=== PATIENT | male | born 1945 | race Caucasian/White ===

== ENCOUNTER 2021-07-26 18:11 | Emergency (ER) | payer MEDICARE, BC ==
[2021-07-26] MEDS ORDERED: Sodium Chloride 0.9% 10 ML Syringe FLUSH PRN (18:37)
[2021-07-26] MEDS ORDERED: Lidocaine 2% HCl 11 ML Jelly Filled Syringe TOP ONE (18:38)
--- NOTE | 2021-07-26 18:47 | EDM.PDOC ---
ED HPI GENERAL MEDICAL PROBLEM - General Chief Complaint: Genitourinary Problem Stated Complaint: kidney stone Time Seen by Provider: 07/26/21 18:15 Source of Information: Reports: Patient History Limitations: Reports: No Limitations - History of Present Illness INITIAL COMMENTS - FREE TEXT/NARRATIVE: Patient comes emergency department today with complaints of hematuria. Patient does have a history of kidney stones as well as hypertension. He is on any anticoagulants or antiplatelets. About 7 days ago he noted that he started having yuridia blood in his urine but he did not have any pain. He continues to have yuridia blood to the point today where it is getting difficult for him to urinate he has a lot of pressure in the suprapubic region. Prior to this he had no dysuria or hematuria or urinary frequency. He has no fever no chills. No abdominal pain. No flank pain. He has had no recent procedures. He has had no recent trauma. This started spontaneously. He had no difficulty with urination previously. - Related Data Allergies Allergy/AdvReac Type Severity Reaction Status Date / Time itraconazole [From Sporanox] Allergy Edema, Verified 07/26/21 18:13 Heart Failure peanut Allergy Cough,conge Verified 07/26/21 18:13 stion Home Meds: Home Meds FLUoxetine HCl [Fluoxetine HCl] 40 mg PO QAM 12/30/13 [History] Felodipine [Felodipine ER] 5 mg PO QAM 12/30/13 [History] ramipriL [Altace] 10 mg PO QAM 12/30/13 [History] EPINEPHrine [Epipen] 0.3 mg IM ASDIRECTED PRN 08/12/16 [History] Multivitamin [Multivitamins] 1 tab PO DAILY 08/13/16 [History] buPROPion [buPROPion XL] 150 mg PO DAILY 08/13/16 [History] Ciprofloxacin HCl [Cipro] 500 mg PO BID #8 tablet 07/26/21 [Rx] Finasteride 5 mg PO BEDTIME #30 tablet 07/26/21 [Rx] Past Medical History Cardiovascular History: Reports: Hypertension, Other (See Below) Other Cardiovascular History: Dyslipidemia Respiratory History: Reports: COPD, Sleep Apnea Gastrointestinal History: Reports: Colon Polyp, Other (See Below) Other Gastrointestinal History: Hx of colon polyps and altered bowel patterns Genitourinary History: Reports: BPH, Other (See Below) Other Genitourinary History: BPH with history of elevated PSA and has been seen by urology, history of kidney stones with lithotripsy Musculoskeletal History: Reports: Osteoarthritis Other Musculoskeletal History: Osteoarthritis to bilat knees & shoulders. Left rotator cuff disease, right rotator cuff surgery. 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 Psychiatric History: Reports: Depression - Past Surgical History Musculoskeletal Surgical History: Reports: Shoulder Surgery Social & Family History - Tobacco Use Tobacco Use Status *Q: Former Tobacco User Used Tobacco, but Quit: Yes Month/Year Tobacco Last Used: 1991 - Caffeine Use Caffeine Use: Reports: Coffee, Soda - Recreational Drug Use Recreational Drug Use: No ED ROS GENERAL - Review of Systems Review Of Systems: Comprehensive ROS is negative, except as noted in HPI. ED EXAM, RENAL/ - Physical Exam Exam: See Below Exam Limited By: No Limitations General Appearance: Alert, WD/WN, No Apparent Distress Respiratory/Chest: No Respiratory Distress, Lungs Clear, Normal Breath Sounds Cardiovascular: Normal Peripheral Pulses, Regular Rate, Rhythm GI/Abdominal: Normal Bowel Sounds, Soft, Non-Tender (Male) Exam: Deferred Rectal (Males) Exam: Deferred Back Exam: Normal Inspection, Full Range of Motion Extremities: Normal Inspection, Normal Range of Motion, Non-Tender, No Pedal Edema, Normal Capillary Refill Neurological: Alert, Oriented, Normal Cognition, Normal Gait, No Motor/Sensory Deficits Psychiatric: Normal Affect, Normal Mood Skin Exam: Warm, Dry, Intact, Normal Color, No Rash Lymphatic: No Adenopathy Course - Vital Signs Last Recorded V/S: Last Vital Signs Temp 98.1 F 07/26/21 21:21 Pulse 84 07/26/21 21:21 Resp 12 07/26/21 21:21 BP 153/88 H 07/26/21 21:21 Pulse Ox 93 L 07/26/21 21:21 - Orders/Labs/Meds Orders: Active Orders 24 hr Category Date Time Status Soler Catheter Insertion [Insert Urinary Catheter] [OM. Care 07/26/21 18:45 Ordered PC] Q24H CULTURE URINE [RM] Stat Lab 07/26/21 19:20 Results Peripheral IV Insertion Adult [OM.PC] Stat Oth 07/26/21 18:37 Ordered Labs: Laboratory Tests 07/26/21 07/26/21 07/26/21 Range/Units 18:48 18:48 18:48 WBC 7.0 (4.0-10.2) K/uL RBC 4.56 (4.33-5.41) M/uL Hgb 13.9 (13.1-16.8) g/dL Hct 41.7 (39.0-49.0) % MCV 91.4 (84.0-98.0) fL MCH 30.5 (28.2-33.3) pg MCHC 33.3 (31.7-36.0) g/dL RDW 14.9 H (11.2-14.1) % Plt Count 241 (150-350) K/uL Neut % (Auto) 66.1 (45.0-80.0) % Lymph % (Auto) 19.7 (10.0-50.0) % Mason % (Auto) 9.2 (2.0-14.0) % Eos % (Auto) 4.4 (0.0-5.0) % Baso % (Auto) 0.6 (0.0-2.0) % Neut # (Auto) 4.65 (1.40-7.00) K/uL Lymph # (Auto) 1.39 (0.50-3.50) K/uL Mason # (Auto) 0.65 (0.00-1.00) K/uL Eos # (Auto) 0.31 (0.00-0.50) K/uL Baso # (Auto) 0.04 (0.00-0.20) K/uL PT 9.8 (9.5-12.0) SEC INR 1.0 APTT 25.0 (24.5-32.8) SEC Sodium 146 H (136-145) mmol/L Potassium 3.6 (3.5-5.1) mmol/L Chloride 110 H (98-107) mmol/L Carbon Dioxide 23.5 (21.0-32.0) mmol/L Anion Gap 16.1 H (7-15) meq/L BUN 22 H (7-18) mg/dL Creatinine 1.33 H (0.51-1.17) mg/dL Est Cr Clr Drug Dosing 43.97 mL/min Estimated GFR (MDRD) 53 mL/min Glucose 107 H (70-99) mg/dL Calcium 8.6 (8.5-10.1) mg/dL Total Bilirubin 0.3 (0.2-1.0) mg/dL AST 20 (15-37) U/L ALT 41 (12-78) U/L Alkaline Phosphatase 93 (46-116) IU/L C-Reactive Protein < 0.2 (<=0.9) mg/dL Total Protein 6.6 (6.4-8.2) g/dL Albumin 3.6 (3.4-5.0) g/dL Specimen Type Urine Color Urine Appearance Urine pH (5.0-9.0) Ur Specific [place] (1.005-1.030) Urine Protein (NEGATIVE) mg/dL Urine Glucose (UA) (NEGATIVE) mg/dL Urine Ketones (NEGATIVE) mg/dL Urine Occult Blood (NEGATIVE) Urine Nitrite (NEGATIVE) Urine Bilirubin (NEGATIVE) Urine Urobilinogen (0.2-1.0) E.U./dL Ur Leukocyte Esterase (NEGATIVE) Urine RBC /HPF Urine WBC /HPF Ur Epithelial Cells /LPF Urine Bacteria (NONE TO FEW) /HPF Urine Mucus (NEGATIVE) /LPF 07/26/21 Range/Units 19:20 WBC (4.0-10.2) K/uL RBC (4.33-5.41) M/uL Hgb (13.1-16.8) g/dL Hct (39.0-49.0) % MCV (84.0-98.0) fL MCH (28.2-33.3) pg MCHC (31.7-36.0) g/dL RDW (11.2-14.1) % Plt Count (150-350) K/uL Neut % (Auto) (45.0-80.0) % Lymph % (Auto) (10.0-50.0) % Mason % (Auto) (2.0-14.0) % Eos % (Auto) (0.0-5.0) % Baso % (Auto) (0.0-2.0) % Neut # (Auto) (1.40-7.00) K/uL Lymph # (Auto) (0.50-3.50) K/uL Mason # (Auto) (0.00-1.00) K/uL Eos # (Auto) (0.00-0.50) K/uL Baso # (Auto) (0.00-0.20) K/uL PT (9.5-12.0) SEC INR APTT (24.5-32.8) SEC Sodium (136-145) mmol/L Potassium (3.5-5.1) mmol/L Chloride (98-107) mmol/L Carbon Dioxide (21.0-32.0) mmol/L Anion Gap (7-15) meq/L BUN (7-18) mg/dL Creatinine (0.51-1.17) mg/dL Est Cr Clr Drug Dosing mL/min Estimated GFR (MDRD) mL/min Glucose (70-99) mg/dL Calcium (8.5-10.1) mg/dL Total Bilirubin (0.2-1.0) mg/dL AST (15-37) U/L ALT (12-78) U/L Alkaline Phosphatase (46-116) IU/L C-Reactive Protein (<=0.9) mg/dL Total Protein (6.4-8.2) g/dL Albumin (3.4-5.0) g/dL Specimen Type Urinvoid Urine Color Red Urine Appearance Turbid Urine pH 8.5 (5.0-9.0) Ur Specific [place] 1.015 (1.005-1.030) Urine Protein >=300 H (NEGATIVE) mg/dL Urine Glucose (UA) Negative (NEGATIVE) mg/dL Urine Ketones 15 H (NEGATIVE) mg/dL Urine Occult Blood Large H (NEGATIVE) Urine Nitrite Positive H (NEGATIVE) Urine Bilirubin Large H (NEGATIVE) Urine Urobilinogen 2.0 H (0.2-1.0) E.U./dL Ur Leukocyte Esterase Large H (NEGATIVE) Urine RBC >100 H /HPF Urine WBC 10-20 H /HPF Ur Epithelial Cells Rare /LPF Urine Bacteria Few (NONE TO FEW) /HPF Urine Mucus Few H (NEGATIVE) /LPF Meds: Medications Discontinued Medications Generic Name Dose Route Start Last Admin Trade Name Freq PRN Reason Stop Dose Admin Finasteride 10 mg 07/26/21 21:21 07/26/21 21:44 Finasteride 5 Mg Tab PO 07/26/21 21:22 10 mg NOW STA Administration Ceftriaxone Sodium 1 gm/ 100 mls @ 200 mls/hr 07/26/21 19:35 07/26/21 20:15 Sodium Chloride IV 07/26/21 20:04 200 mls/hr ONETIME ONE Administration Lactated Ringer's 1,000 mls @ 125 mls/hr 07/26/21 20:00 07/26/21 21:18 Ringers, Lactated IV 500 mls/hr ASDIRECTED TASHI Infusion Lidocaine HCl 11 ml 07/26/21 18:38 07/26/21 19:00 Lidocaine 2% Hcl 11 Ml Jelly Filled Syringe TOP 07/26/21 18:39 11 ml ONETIME ONE Administration Lidocaine HCl Confirm 07/26/21 19:10 07/26/21 21:18 Lidocaine 2% Hcl 11 Ml Jelly Filled Syringe Administered 07/26/21 19:11 Not Given Dose 11 ml .ROUTE .STK-MED ONE Lidocaine HCl Confirm 07/26/21 21:15 07/26/21 21:19 Lidocaine 2% Hcl 11 Ml Jelly Filled Syringe Administered 07/26/21 21:16 Not Given Dose 11 ml .ROUTE .STK-MED ONE Sodium Chloride 10 ml 07/26/21 18:37 Sodium Chloride 0.9% 10 Ml Syringe FLUSH ASDIRECTED PRN Keep Vein Open - Re-Assessments/Exams Free Text/Narrative Re-Assessment/Exam: The urine sample that this patient gave is pretty much yuridia very thick coagulated blood. I have concerns for some type of bleeding versus infection in the bladder. Therefore a three-way Soler catheter was placed and continuous bladder irrigation was initiated. Initially there was a small amount of clots but very few. The urine turned very pale pink very quickly. We continued bladder irrigation. Laboratory evaluation with a normal CBC, normal coags. Sodium 146, chloride 110, BUN 22 creatinine 1.33 which is up from his baseline of 1.15 CRP is normal. His urine is obviously quite a bit of blood but large leukocyte esterase greater than 100 RBCs 1020 WBCs. Ketones nitrite positive Ceftriaxone 1 g IV piggyback. There was only a small amount of blood clots within the bladder. The syncope concerning for other type of process of bleeding. He is clearly showing signs of UTI by his urine although he was asymptomatic otherwise. I called and spoke with Dr. Ivan from Urology at [place]. HPI ER COURSE findings and concerns were relayed to him. I explained that this patient has had multiple prostate procedures in the past done at [facility] as well as [facility]. Dr. Moreno does not have any concerns of glomerular bleeding at this time as the patient has no risk factors. This is most likely bleeding from his prostate. His a recommendation is to treat the urinary tract infection start him on Proscar have him follow-up with urology this week. I relayed the findings of the work-up for this patient my concerns for either a urinary tract infection that is also causing bleeding or other pathology such as prostate bleeding bladder tumor bleeding or other concerns but nothing emergent at this time. His urine continues to be a very pale pink in the continuous bladder irrigation. The Soler was removed. We will discharge him home on Cipro as well as Proscar every night. He will follow up with urology this week. Discharge directions as below are explained the patient is comfortable with this plan his questions were answered. Departure - Departure Time of Disposition: 21:45 Disposition: Home, Self-Care 01 Clinical Impression: UTI, Urinary tract infectious disease, Gross hematuria - Discharge Information Prescriptions: Ciprofloxacin HCl [Cipro] 500 mg PO BID #8 tablet Finasteride 5 mg PO BEDTIME #30 tablet Instructions: Urinary Tract Infection, Adult, [id number], Pain Medicine Instructions, [id number] Referrals: Tashia Koo PA-C [Primary Care Provider] - Forms: ED Department Discharge Additional Instructions: Make sure and drink plenty of fluids the next few days. Keep yourself well hydrated. Cipro, 1 tablet twice daily for the next 7 days. Bottle sent home from the ED and RX to [facility] pharmacy to picking belt operator on wednesday. Finasteride, 1 tablet daily at bedtime. First dose given in the ED. Dose to go home for wednesday. RX to [facility] pharmacy to picking belt operator wednesday. Contact Dr. Lentz office on wednesday for recheck with concerns of UTI and possible prostate bleeding. Return to the ED if new or worsening symptoms. Especially fever unable to keep meds down from Nausea and vomiting or inability to urinate. Follow up with Dr. Lentz when able. - My Orders Last 24 Hours: My Active Orders 07/26/21 18:37 Peripheral IV Insertion Adult [OM.PC] Stat 07/26/21 18:45 Soler Catheter Insertion [Insert Urinary Catheter] [OM.PC] Q24H 07/26/21 19:20 CULTURE URINE [RM] Stat - Assessment/Plan Last 24 Hours: My Active Orders 07/26/21 18:37 Peripheral IV Insertion Adult [OM.PC] Stat 07/26/21 18:45 Soler Catheter Insertion [Insert Urinary Catheter] [OM.PC] Q24H 07/26/21 19:20 CULTURE URINE [RM] Stat
[2021-07-26] MEDS ORDERED: Lidocaine 2% HCl 11 ML Jelly Filled Syringe ONE ×2 (19:10→21:15)
[2021-07-26 19:21] LABS: CHLORIDE,CL 110 mmol/L (98-107); SODIUM,NA 146 mmol/L (136-145)
[2021-07-26 19:22] LABS: ANION GAP 16.1 meq/L (7-15)
[2021-07-26] MEDS ORDERED: cefTRIAXone 1 GM in Sodium Chloride 0.9% 100 ML IV ONE (19:35)
[2021-07-26] MEDS ORDERED: Lactated Ringers 1,000 ML IV SCH (20:00)
[2021-07-26] MEDS ORDERED: Finasteride 5 MG Tab PO STA (21:21)
[2021-07-26 21:23] VITALS: BP 153/88; PULSE 84
== END 2021-07-26 22:05 | disposition home or self-care (01) ==
LOC: LL.ED 18:11
DX: N39.0 Urinary tract infection, site not specified (principal); R31.0 Gross hematuria; I10 Essential (primary) hypertension; J44.9 Chronic obstructive pulmonary disease, unspecified; Z87.891 Personal history of nicotine dependence; Z91.010 Allergy to peanuts; Z88.8 Allergy status to other drugs, medicaments and biological substances
CPT/HCPCS: 36415; 51702; 80053; 81001; 85025; 85610; 85730; 86140; 87086; 96365; 99283-25; 99284; A9270-GY; J0696; J7120

== ENCOUNTER 2022-03-16 09:45 | Emergency (ER) | payer MEDICARE, BC ==
[2022-03-16] MEDS ORDERED: Sodium Chloride 0.9% 10 ML Syringe FLUSH PRN (10:22)
[2022-03-16 10:47] LABS: ANION GAP 9.7 meq/L (7-15); CHLORIDE,CL 107 mmol/L (98-107); SODIUM,NA 142 mmol/L (136-145)
[2022-03-16 12:02] VITALS: BP 144/84; PULSE 61
[2022-03-16 12:03] LABS: CORONAVIRUS COVID-19 NAA NEGATIVE (NEGATIVE); RESPIRATORY SYNCYTIAL VIR NAA NEGATIVE (NEGATIVE)
== END 2022-03-16 13:05 | disposition home or self-care (01) ==
LOC: LL.ED 09:45
DX: M50.30 Other cervical disc degeneration, unspecified cervical region (principal); J44.9 Chronic obstructive pulmonary disease, unspecified; I10 Essential (primary) hypertension; E66.9 Obesity, unspecified; Z68.30 Body mass index [BMI] 30.0-30.9, adult; Z79.899 Other long term (current) drug therapy; Z91.010 Allergy to peanuts; Z88.8 Allergy status to other drugs, medicaments and biological substances; Z20.822 Contact with and (suspected) exposure to COVID-19
CPT/HCPCS: 0241U; 36415; 71045; 72125; 80053; 81001; 82550; 83605; 83735; 83880; 84443; 84484; 85025; 85379; 85610; 87086; 87088; 93005; 93010; 99284; 99284-25

== ENCOUNTER 2023-09-09 09:35 | Day surgery (SDC) | payer MEDICARE, BC ==
[~2023-09-09 09:35] MED LIST: Midazolam 1 MG/ML 2 ML SDV ONE; Propofol 200 MG/20 ML SDV ONE
[2023-09-09] MEDS ORDERED: Sodium Chloride 0.9% 10 ML Syringe FLUSH PRN (09:45)
[2023-09-09] MEDS ORDERED: Lactated Ringers 1,000 ML IV SCH (09:45)
[2023-09-09 11:43] VITALS: BP 109/76; PULSE 55
== END 2023-09-09 12:05 | disposition home or self-care (01) ==
LOC: LL.SDS 09:35
PROVIDERS: ATTEND Surgery
DX: Z12.11 Encounter for screening for malignant neoplasm of colon (principal); K57.30 Diverticulosis of large intestine without perforation or abscess without bleeding; I10 Essential (primary) hypertension; E78.5 Hyperlipidemia, unspecified; R94.31 Abnormal electrocardiogram [ECG] [EKG]; F41.9 Anxiety disorder, unspecified; N40.0 Benign prostatic hyperplasia without lower urinary tract symptoms; F32.A Depression, unspecified; Z86.010 Personal history of colon polyps; Z87.891 Personal history of nicotine dependence; Z79.1 Long term (current) use of non-steroidal anti-inflammatories (NSAID); Z79.899 Other long term (current) drug therapy; Z88.8 Allergy status to other drugs, medicaments and biological substances; Z91.010 Allergy to peanuts
CPT/HCPCS: 00812; J2250; J2704; J7120

== ENCOUNTER 2024-05-11 17:38 | Emergency (ER) | payer MEDICARE, BC ==
[2024-05-11] MEDS ORDERED: Sodium Chloride 0.9% 10 ML Syringe FLUSH PRN (17:49)
[2024-05-11 18:08] LABS: BASOPHILS ABSOLUTE AUTO 0.03 K/uL (0.00-0.20); BASOPHILS PERCENT AUTO 0.3 % (0.0-2.0); EOSINOPHILS ABSOLUTE AUTO 0.06 K/uL (0.00-0.50); EOSINOPHILS PERCENT AUTO 0.7 % (0.0-5.0); HEMATOCRIT 39.8 % (39.0-49.0); HEMOGLOBIN 13.2 g/dL (13.1-16.8); LYMPHOCYTES ABSOLUTE AUTO 0.69 K/uL (0.50-3.50); LYMPHOCYTES PERCENT AUTO 7.7 % (10.0-50.0); MEAN CORPUSCULAR HEMOGLOBIN 30.5 pg (28.2-33.3); MEAN CORPUSCULAR HGB CONC 33.2 g/dL (31.7-36.0); MEAN CORPUSCULAR VOLUME 91.9 fL (84.0-98.0); MONOCYTES ABSOLUTE AUTO 1.24 K/uL (0.00-1.00); MONOCYTES PERCENT AUTO 13.9 % (2.0-14.0); NEUTROPHILS ABSOLUTE AUTO 6.91 K/uL (1.40-7.00); NEUTROPHILS PERCENT AUTO 77.4 % (45.0-80.0); PLATELET COUNT,PLT 239 K/uL (150-350); RED BLOOD CELL COUNT 4.33 M/uL (4.33-5.41); RED CELL DISTRIBUTION WIDTH 14.4 % (11.2-14.1); WHITE BLOOD CELL COUNT,WBC 8.9 K/uL (4.0-10.2)
[2024-05-11 18:33] LABS: PROTHROMBIN TIME 10.4 SEC (9.0-11.1)
[2024-05-11 18:38] LABS: LACTIC ACID 1.2 mmol/L (0.4-2.0)
[2024-05-11 18:46] LABS: ALANINE AMINOTRANSFERASE,ALT 21 U/L (12-78); ALBUMIN 3.2 g/dL (3.4-5.0); ALKALINE PHOSPHATASE 93 IU/L (46-116); ANION GAP 11.8 meq/L (7-15); ASPARTATE AMNIOTRANSFERASE,AST 15 U/L (15-37); BILIRUBIN TOTAL 0.4 mg/dL (0.2-1.0); BLOOD UREA NITROGEN,BUN 23 mg/dL (7-18); CALCIUM 8.8 mg/dL (8.5-10.1); CARBON DIOXIDE,CO2 23.2 mmol/L (21.0-32.0); CHLORIDE,CL 107 mmol/L (98-107); CREATININE 1.28 mg/dL (0.51-1.17); GLUCOSE RANDOM 108 mg/dL (70-99); MAGNESIUM 1.7 mg/dL (1.8-2.4); POTASSIUM,K 3.5 mmol/L (3.5-5.1); PRO B-TYPE NATRIUR PEPT,BNPPRO 276 pg/mL (0-125); PROTEIN TOTAL,TP 6.9 g/dL (6.4-8.2); SODIUM,NA 142 mmol/L (136-145)
[2024-05-11 18:46] LABS: CORONAVIRUS COVID-19 NAA NEGATIVE (NEGATIVE); INFLUENZA A NAA NEGATIVE (NEGATIVE); INFLUENZA B NAA NEGATIVE (NEGATIVE); RESPIRATORY SYNCYTIAL VIR NAA NEGATIVE (NEGATIVE)
[2024-05-11 18:48] LABS: ESTIMATED GFR 58 mL/min (>=60)
[2024-05-11 19:17] LABS: APPEARANCE,URINE SLIGHTLY CLOUDY; BILIRUBIN,URINE NEGATIVE (NEGATIVE); COLOR,URINE YELLOW; EPITHELIAL CELLS,URINE RARE /LPF; GLUCOSE,URINE NEGATIVE (NEGATIVE); KETONES,URINE NEGATIVE (NEGATIVE); LEUKOCYTE ESTERASE,URINE SMALL (NEGATIVE); NITRITE,URINE NEGATIVE (NEGATIVE); OCCULT BLOOD,URINE MODERATE (NEGATIVE); PH,URINE 6.5 (5.0-9.0); PROTEIN,URINE 100 mg/dL (NEGATIVE); UROBILINOGEN,URINE 0.2 E.U./dL (0.2-1.0); WBC,URINE 30-40 /HPF
[2024-05-11 19:18] LABS: BACTERIA,URINE FEW /HPF (NONE TO FEW)
[2024-05-11 19:31] VITALS: BP 144/81; PULSE 75
[2024-05-13] MEDS: Take Home: Ciprofloxacin HCl 500 MG, 6 Tab Pack PO ONE (16:54)
== END 2024-05-11 19:46 | disposition home or self-care (01) ==
LOC: LL.ED 17:38
DX: B34.9 Viral infection, unspecified (principal); I10 Essential (primary) hypertension; J44.9 Chronic obstructive pulmonary disease, unspecified; E66.9 Obesity, unspecified; Z79.899 Other long term (current) drug therapy; Z88.0 Allergy status to penicillin; Z91.010 Allergy to peanuts
CPT/HCPCS: 0241U; 36415; 71046; 80053; 81001; 83605; 83735; 83880; 84484; 85025; 85610; 87040; 87086; 93005; 99285; 87088